=== PATIENT | female | born 1995 | race Caucasian/White ===

== ENCOUNTER 2018-07-29 20:29 | Emergency (ER) | payer SELFPAY ==
[2018-07-29 21:14] LABS: Absolute Lymphocytes (CBC) 1.3 K/uL (0.7-4.9); Absolute Monocytes 0.6 K/uL (0.1-1.3); Absolute Neutrophil 4.9 K/uL (1.8-8.0); Basophils % 0.4 % (0-1.3); Eosinophils % 0.9 % (0-4.4); Hematocrit 37.4 % (36.0-45.0); Lymphocytes % 18.6 % (15.3-44.8); MCH 29.1 pg (27.0-35.0); MCV 86.3 fL (80-100); MPV 8.2 fL (7.6-11.3); RBC Red Blood Cell Count 4.33 M/uL (3.86-4.86)
[2018-07-29] MEDS ORDERED: NA CHLORIDE 0.9% 1,000 ML ONE (21:15)
[2018-07-29 21:29] LABS: ALT/SGPT 21 U/L (12-78); AST/SGOT 16 U/L (15-37); Albumin 3.7 g/dL (3.4-5.0); Alkaline Phosphatase 62 U/L (45-117); BUN Blood Urea Nitrogen 12 mg/dL (7-18); Bicarbonate 27 mmol/L (21-32); Bilirubin Direct < 0.1 mg/dL (0-0.2); Bilirubin Total 0.3 mg/dL (0.2-1.0); Glucose Level 114 mg/dL (74-106); Potassium 4.1 mmol/L (3.5-5.1); Protein, Total 7.2 g/dL (6.4-8.2); Sodium Level 141 mmol/L (136-145)
[2018-07-29] MEDS ORDERED: NA CHLORIDE 0.9% 500 ML ONE (22:43)
[2018-07-29 22:51] LABS: Urine Blood 2+ (NEG); Urine Glucose NEGATIVE (NEG); Urine Protein NEGATIVE (NEG)
[2018-07-29 23:06] LABS: Urine Culture Reflex Order REFLEXED; Urine RBC <5 /HPF (NONE SEEN)
[2018-07-29 23:07] LABS: Urine Bacteria 20-50 /HPF (<20)
[2018-07-29 23:08] LABS: Barbiturates NEGATIVE (NEGATIVE); Benzodiazepines NEGATIVE (NEGATIVE); Cocaine NEGATIVE (NEGATIVE); METHAMPHETAM NEGATIVE (NEGATIVE); Methadone NEGATIVE (NEGATIVE); Opiates NEGATIVE (NEGATIVE); Phencyclidine NEGATIVE (NEGATIVE); THC Cannibis POSITIVE (NEGATIVE)
--- NOTE | 2018-07-29 23:39 | EDPHYS ---
Physician Documentation [facility] Name: Francheska Fernandez Age: 22 yrs Sex: Female : 1995 Arrival Date: 07/29/2018 Time: 20:30 Bed 5 Private MD: ED Physician Trav Portillo HPI: 07/29 21:26 This 22 yrs old Female presents to ER via EMS with complaints of lightheaded, snw syncope. 21:26 The patient has experienced syncope, collapsed. Onset: The symptoms/episode snw began/occurred suddenly, today. Duration: The patient has had multiple episodes. Context: the episode(s) was witnessed, by family, occurred at a store, occurred while the patient was walking. Associated signs and symptoms: Pertinent positives: lightheadedness. Current symptoms: lightheaded. The patient has experienced a previous episode. 2 months ago - IUD placed. 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 - Social history:: Smoking status: Patient/guardian denies using tobacco, Patient/guardian denies using alcohol, street drugs. - Ebola Screening: : Patient negative for fever greater than or equal to 101.5 degrees Fahrenheit, and additional compatible Ebola Virus Disease symptoms Patient denies exposure to infectious person Patient denies travel to an Ebola-affected area in the 21 days before illness onset. ROS: 21:28 Constitutional: Negative for fever, chills, and weight loss, Eyes: Negative for injury, snw pain, redness, and discharge, ENT: Negative for injury, pain, and discharge, Neck: Negative for injury, pain, and swelling, Cardiovascular: Negative for chest pain, palpitations, and edema, Respiratory: Negative for shortness of breath, cough, wheezing, and pleuritic chest pain, Abdomen/GI: Negative for abdominal pain, nausea, vomiting, diarrhea, and constipation, Back: Negative for injury and pain, : Negative for injury, bleeding, discharge, and swelling, MS/Extremity: Negative for injury and deformity, Skin: Negative for injury, rash, and discoloration. 21:28 Neuro: Positive for syncope. Exam: 21:29 Constitutional: This is a well developed, well nourished patient who is awake, alert, snw and in no acute distress. Head/Face: Normocephalic, atraumatic. ENT: Nares patent. No nasal discharge, no septal abnormalities noted. Tympanic membranes are normal and external auditory canals are clear. Oropharynx with no redness, swelling, or masses, exudates, or evidence of obstruction, uvula midline. Mucous membranes moist. Neck: Trachea midline, no thyromegaly or masses palpated, and no cervical lymphadenopathy. Supple, full range of motion without nuchal rigidity, or vertebral point tenderness. No Meningismus. Chest/axilla: Normal chest wall appearance and motion. Nontender with no deformity. No lesions are appreciated. Cardiovascular: Tachy rate and rhythm with a normal S1 and S2. No gallops, murmurs, or rubs. Normal PMI, no JVD. No pulse deficits. Respiratory: Lungs have equal breath sounds bilaterally, clear to auscultation and percussion. No rales, rhonchi or wheezes noted. No increased work of breathing, no retractions or nasal flaring. Abdomen/GI: Soft, non-tender, with normal bowel sounds. No distension or tympany. No guarding or rebound. No evidence of tenderness throughout. Back: No spinal tenderness. No costovertebral tenderness. Full range of motion. 21:29 Eyes: Pupils: no acute changes, Conjunctiva: injected. 21:29 Skin: Appearance: Color: pale, Temperature: normal temperature. Vital Signs: 20:25 BP 94 / 51; Pulse 106; Resp 18; Temp 98.4(O); Pulse Ox 98% on R/A; Weight 54.43 kg (R); fc Height 5 ft. 0 in. (152.40 cm) (R); Pain 0/10; 21:48 BP 105 / 57; Pulse 105; Resp 17 S; Pulse Ox 97% on R/A; jd3 22:34 BP 102 / 66; Pulse 108; Resp 15 S; Pulse Ox 100% on R/A; jd3 23:18 BP 101 / 67; Pulse 93; Resp 15 S; Pulse Ox 97% on R/A; jd3 20:25 Body Mass Index 23.44 (54.43 kg, 152.40 cm) fc MDM: 20:45 Patient medically screened. snw 07/30 02:54 Data reviewed: vital signs, nurses notes, lab test result(s), radiologic studies. Data snw interpreted: Pulse oximetry: on room air is 97 %. Interpretation: normal. Counseling: I had a detailed discussion with the patient and/or guardian regarding: the historical points, exam findings, and any diagnostic results supporting the discharge/admit diagnosis, lab results, the need for outpatient follow up, to return to the emergency department if symptoms worsen or persist or if there are any questions or concerns that arise at home. Special discussion: Based on the history and exam findings, there is no indication for further emergent testing or inpatient evaluation. I discussed with the patient/guardian the need to see the primary care provider for further evaluation of the symptoms. 07/29 20:41 Order name: TS; Complete Time: 22:06 snw 07/29 20:41 Order name: Basic Metabolic Panel; Complete Time: 21:31 snw 07/29 20:41 Order name: CBC with Diff; Complete Time: 21:22 snw 07/29 20:41 Order name: Hepatic Function; Complete Time: 21:31 snw 07/29 21:29 Order name: Flu; Complete Time: 22:18 snw 07/29 21:31 Order name: Urine Microscopic Only; Complete Time: 23:10 snw 07/29 21:31 Order name: Urine Drug Screen; Complete Time: 23:37 snw 07/29 21:33 Order name: Add On-Lab [facility] 07/29 21:39 Order name: Thyroid Stimulating Hormone; Complete Time: 22:06 [facility] 07/29 22:43 Order name: Urine Dipstick--Ancillary (enter results); Complete Time: 22:52 mt 07/29 22:43 Order name: Urine --Ancillary (enter results); Complete Time: 22:52 ar 07/29 23:08 Order name: Urine Culture [facility] 07/29 20:41 Order name: Labs collected and sent; Complete Time: 21:07 snw 07/29 21:28 Order name: EKG; Complete Time: 21:28 snw 07/29 21:28 Order name: EKG - Nurse/Tech; Complete Time: 22:02 w 07/29 21:31 Order name: Urine Test (obtain specimen); Complete Time: 22:39 snw 07/29 21:31 Order name: Urine Dipstick-Ancillary (obtain specimen); Complete Time: 22:39 snw Administered Medications: 07/29 21:11 Drug: NS 0.9% 1000 ml Route: IV; Rate: 1 bolus; Site: right antecubital; jd3 22:39 Follow up: Response: No adverse reaction; IV Status: Completed infusion; IV Intake: jd3 1000ml 22:38 Drug: NS 0.9% 500 ml Volume: 500 ml; Route: IV; Rate: 1 bolus; Site: right antecubital; jd3 23:59 Follow up: Response: No adverse reaction; IV Status: Completed infusion; IV Intake: jd3 500ml Disposition: 07/30 17:05 Co-signature as Attending Physician, Trav Portillo MD I agree with the assessment and wa plan of care. Disposition: 07/29/18 23:39 Discharged to Home. Impression: Syncope and collapse, Marijuana use. - Condition is Stable. - Discharge Instructions: Dehydration, Adult, Syncope, Rehydration, Adult, What You Need To Know About Illegal Drug Use and Dependence, Youth. - Work release form, Medication Reconciliation Form, Thank You Letter, Antibiotic Education, Prescription Opioid Use form. - Follow up: Private Physician; When: 1 - 2 days; Reason: Recheck today's complaints, Continuance of care, Re-evaluation by your physician. Follow up: Emergency Department; When: As needed; Reason: Worsening of condition. Signatures: Dispatcher [employer] EDMA Valerie Sosa FNP-C [employer] OPERATOR-Elizabet Chavis, RN Trav King MD MD wa Davies, Jonathon, RN RN jd3 Corrections: (The following items were deleted from the chart) 07/29 23:59 23:39 07/29/2018 23:39 Discharged to Home. Impression: Syncope and collapse; Marijuana jd3 use. Condition is Stable. Forms are Medication Reconciliation Form, Thank You Letter, Antibiotic Education, Prescription Opioid Use. Follow up: Private Physician; When: 1 - 2 days; Reason: Recheck today's complaints, Continuance of care, Re-evaluation by your physician. Follow up: Emergency Department; When: As needed; Reason: Worsening of condition. snw
--- NOTE | 2018-07-29 23:39 | ER ---
Nurse's Notes [facility] Name: Francheska Fernandez Age: 22 yrs Sex: Female : 1995 Arrival Date: 07/29/2018 Time: 20:30 Bed 5 Private MD: Diagnosis: Syncope and collapse;Marijuana use Presentation: 07/29 20:25 Presenting complaint: Patient states: that she had an IUD placed 2 weeks ago and has fc been spotting ever since. Was at [facility] today and had 3 episodes of syncope. Never completely passed out and or fell to ground. Has had this in the past but never went to for it. Transition of care: patient was not received from another setting of care. Onset of symptoms was July 29, 2018. Risk Assessment: Do you want to hurt yourself or someone else? Patient reports no desire to harm self or others. Initial Sepsis Screen: Does the patient meet any 2 criteria? HR > 90 bpm. Yes Does the patient have a suspected source of infection? No. Patient's initial sepsis screen is negative. Care prior to arrival: Medication(s) given: Normal saline infusion, 300 ml IV initiated. 22 GA, in the right antecubital area, Glucose check: 118. 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 - Social history:: Smoking status: Patient/guardian denies using tobacco, Patient/guardian denies using alcohol, street drugs. - Ebola Screening: : Patient negative for fever greater than or equal to 101.5 degrees Fahrenheit, and additional compatible Ebola Virus Disease symptoms Patient denies exposure to infectious person Patient denies travel to an Ebola-affected area in the 21 days before illness onset. Screenin:35 Abuse screen: Denies threats or abuse. Nutritional screening: No deficits noted. fc Tuberculosis screening: No symptoms or risk factors identified. Fall Risk None identified. Assessment: 20:33 General: Appears uncomfortable, Behavior is cooperative, anxious. Pain: Denies pain. jd3 Neuro: Level of Consciousness is awake, alert, obeys commands, Oriented to person, place, time, situation, Appropriate for age Moves all extremities. Speech is normal, Pupils are PERRLA, Intact Reports a syncopal episode weakness. Cardiovascular: Denies chest pain, Heart tones S1 S2 present Capillary refill < 3 seconds Patient's skin is warm and dry. Respiratory: Airway is patent Respiratory effort is even, unlabored, Respiratory pattern is regular, symmetrical, Breath sounds are clear bilaterally. Denies shortness of breath. GI: Abdomen is round non-distended, Bowel sounds present X 4 quads. Abd is soft and non tender X 4 quads. Patient currently denies nausea, vomiting. : No signs and/or symptoms were reported regarding the genitourinary system. EENT: No signs and/or symptoms were reported regarding the EENT system. Derm: Skin is intact, Skin is dry, Skin is normal, Skin temperature is warm. Musculoskeletal: Circulation, motion, and sensation intact. Range of motion: intact in all extremities. 21:48 Reassessment: Patient appears in no apparent distress at this time. Patient and/or jd3 family updated on plan of care and expected duration. Pain level reassessed. Patient is alert, oriented x 3, equal unlabored respirations, skin warm/dry/pink. Patient states feeling better. 22:34 Reassessment: Patient appears in no apparent distress at this time. No changes from jd3 previously documented assessment. Patient and/or family updated on plan of care and expected duration. Pain level reassessed. Patient is alert, oriented x 3, equal unlabored respirations, skin warm/dry/pink. 23:19 Reassessment: Patient appears in no apparent distress at this time. No changes from jd3 previously documented assessment. Patient and/or family updated on plan of care and expected duration. Pain level reassessed. Patient is alert, oriented x 3, equal unlabored respirations, skin warm/dry/pink. 23:58 Reassessment: Patient appears in no apparent distress at this time. No changes from jd3 previously documented assessment. Patient and/or family updated on plan of care and expected duration. Pain level reassessed. Patient is alert, oriented x 3, equal unlabored respirations, skin warm/dry/pink. pt reported understanding of discharge instructions. Vital Signs: 20:25 BP 94 / 51; Pulse 106; Resp 18; Temp 98.4(O); Pulse Ox 98% on R/A; Weight 54.43 kg (R); fc Height 5 ft. 0 in. (152.40 cm) (R); Pain 0/10; 21:48 BP 105 / 57; Pulse 105; Resp 17 S; Pulse Ox 97% on R/A; jd3 22:34 BP 102 / 66; Pulse 108; Resp 15 S; Pulse Ox 100% on R/A; jd3 23:18 BP 101 / 67; Pulse 93; Resp 15 S; Pulse Ox 97% on R/A; jd3 20:25 Body Mass Index 23.44 (54.43 kg, 152.40 cm) fc ED Course: 20:25 Arm band placed on Patient placed in an exam room, on a stretcher. fc 20:30 Patient arrived in ED. al2 20:34 Triage completed. fc 20:35 Patient has correct armband on for positive identification. Bed in low position. Call fc light in reach. Side rails up X2. Pulse ox on. NIBP on. 20:35 No provider procedures requiring assistance completed. Maintain EMS IV. Dressing fc intact. Good blood return noted. Site clean \T\ dry. Gauge \T\ site: 22 gauge to right a/c. 20:38 Mike Greco RN is Primary Nurse. jd3 20:40 Valerie Sosa FNP-C is PHCP. snw 20:40 Trav Portillo MD is Attending Physician. snw 23:58 IV discontinued, intact, bleeding controlled, No redness/swelling at site. Pressure jd3 dressing applied. Administered Medications: 21:11 Drug: NS 0.9% 1000 ml Route: IV; Rate: 1 bolus; Site: right antecubital; jd3 22:39 Follow up: Response: No adverse reaction; IV Status: Completed infusion; IV Intake: jd3 1000ml 22:38 Drug: NS 0.9% 500 ml Volume: 500 ml; Route: IV; Rate: 1 bolus; Site: right antecubital; jd3 23:59 Follow up: Response: No adverse reaction; IV Status: Completed infusion; IV Intake: jd3 500ml Intake: 22:39 IV: 1000ml; Total: 1000ml. jd3 23:59 IV: 500ml; Total: 1500ml. jd3 Outcome: 23:39 Discharge ordered by . mj 23:57 Discharged to home via wheelchair, with friend. jd3 23:57 Condition: stable 23:57 Discharge instructions given to patient, friend, Instructed on discharge instructions, follow up and referral plans. Demonstrated understanding of instructions, follow-up care. 23:59 Patient left the ED. jd3 Signatures: Valerie Sosa, CLARK DRIVER-C CLARK DRIVER-Csnw Elizabet Cifuentes, RN RN Mike Shi RN RN jmickey Johnson, Kylie smith
--- NOTE | 2018-07-30 07:09 | EKG ---
Test Date: 2018-07-29 Test Time: 21:56:22 Slackman: NEENA MEASUREMENT RESULTS: Intervals: Rate: 110 NM: 128 QRSD: 88 QT: 316 QTc: 427 [place]: P: 42 NM: 128 QRS: 70 T: -5 INTERPRETIVE STATEMENTS: Sinus tachycardia Nonspecific T wave abnormality Abnormal ECG No previous ECG available for comparison Electronically Signed On 07-30-18 07:09:05 COLD ROLLING MACHINE SETTER by Raul Puckett
== END 2018-07-29 23:59 | disposition home or self-care (01) ==
LOC: ER 20:29
DX: F12.90 Cannabis use, unspecified, uncomplicated (principal)
CPT/HCPCS: 36415; 80048; 80076; 80307; 81003; 81015; 81025; 84443; 85025; 86850; 86900; 86901; 87086; 87088; 87804; 93005; 96360; 96361; 99284; J7030

== ENCOUNTER 2018-11-18 20:27 | Emergency (ER) | payer SELFPAY ==
--- NOTE | 2018-11-18 21:41 | EDPHYS ---
Physician Documentation [facility] Name: Francheska Fernandez Age: 23 yrs Sex: Female : 1995 Arrival Date: 11/18/2018 Time: 20:29 Bed 17 Private MD: ED Physician Kain Nunes HPI: 11/18 21:49 This 23 yrs old Female presents to ER via Ambulatory with complaints of snw Cough, Sore Throat, Congestion. 21:49 The patient or guardian reports cough, described as moderate. Onset: The snw symptoms/episode began/occurred acutely, 2 day(s) ago, and became persistent. Severity of symptoms: At their worst the symptoms were severe. Associated signs and symptoms: Pertinent positives: rhinorrhea, sore throat, Pertinent negatives: fever. The patient has not experienced similar symptoms in the past. It is unknown whether or not the patient has recently seen a physician. 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 - Social history:: Smoking status: Patient/guardian denies using tobacco, never smoked, Patient uses alcohol, but reports only rare drinking. Patient/guardian denies using street drugs. - Ebola Screening: : Patient negative for fever greater than or equal to 101.5 degrees Fahrenheit, and additional compatible Ebola Virus Disease symptoms Patient denies exposure to infectious person Patient denies travel to an Ebola-affected area in the 21 days before illness onset. ROS: 21:47 Constitutional: Negative for fever, chills, and weight loss, Eyes: Negative for injury, snw pain, redness, and discharge. 21:47 Neck: Negative for injury, pain, and swelling, Cardiovascular: Negative for chest pain, palpitations, and edema. 21:47 Abdomen/GI: Negative for abdominal pain, nausea, vomiting, diarrhea, and constipation, Back: Negative for injury and pain, : Negative for injury, bleeding, discharge, and swelling, MS/Extremity: Negative for injury and deformity, Skin: Negative for injury, rash, and discoloration, Neuro: Negative for headache, weakness, numbness, tingling, and seizure. 21:47 ENT: Positive for nasal discharge, sore throat. 21:47 Respiratory: Positive for cough, with no reported sputum. Exam: 21:46 Constitutional: This is a well developed, well nourished patient who is awake, alert, snw and in no acute distress. Head/Face: Normocephalic, atraumatic. Eyes: Pupils equal round and reactive to light, extra-ocular motions intact. Lids and lashes normal. Conjunctiva and sclera are non-icteric and not injected. Cornea within normal limits. Periorbital areas with no swelling, redness, or edema. ENT: Nares patent. No nasal discharge, no septal abnormalities noted. Tympanic membranes are normal and external auditory canals are clear. Oropharynx with redness, no swelling, or masses, exudates, or evidence of obstruction, uvula midline. Mucous membranes moist. Neck: Trachea midline, no thyromegaly or masses palpated, and no cervical lymphadenopathy. Supple, full range of motion without nuchal rigidity, or vertebral point tenderness. No Meningismus. Chest/axilla: Normal chest wall appearance and motion. Nontender with no deformity. No lesions are appreciated. Cardiovascular: Regular rate and rhythm with a normal S1 and S2. No gallops, murmurs, or rubs. Normal PMI, no JVD. No pulse deficits. Respiratory: Lungs have equal breath sounds bilaterally, clear to auscultation and percussion. No rales, rhonchi or wheezes noted. No increased work of breathing, no retractions or nasal flaring. Abdomen/GI: Soft, non-tender, with normal bowel sounds. No distension or tympany. No guarding or rebound. No evidence of tenderness throughout. Back: No spinal tenderness. No costovertebral tenderness. Full range of motion. Skin: Warm, dry with normal turgor. Normal color with no rashes, no lesions, and no evidence of cellulitis. MS/ Extremity: Pulses equal, no cyanosis. Neurovascular intact. Full, normal range of motion. Neuro: Awake and alert, GCS 15, oriented to person, place, time, and situation. Cranial nerves II-XII grossly intact. Motor strength 5/5 in all extremities. Sensory grossly intact. Cerebellar exam normal. Normal gait. Psych: Awake, alert, with orientation to person, place and time. Behavior, mood, and affect are within normal limits. Vital Signs: 20:36 BP 109 / 69; Pulse 95; Resp 17; Temp 99.7; Pulse Ox 100% on R/A; Weight 56.7 kg; Height tl1 5 ft. 0 in. (152.40 cm); Pain 6/10; 22:00 BP 104 / 64; Pulse 91; Resp 18; Pulse Ox 99% on R/A; tl2 20:36 Body Mass Index 24.41 (56.70 kg, 152.40 cm) tl1 MDM: 21:02 Patient medically screened. snw 21:47 Data reviewed: vital signs, nurses notes. Data interpreted: Pulse oximetry: on room air snw is 100 %. Interpretation: normal. Counseling: I had a detailed discussion with the patient and/or guardian regarding: the historical points, exam findings, and any diagnostic results supporting the discharge/admit diagnosis, lab results, the need for outpatient follow up, to return to the emergency department if symptoms worsen or persist or if there are any questions or concerns that arise at home. Special discussion: Based on the history and exam findings, there is no indication for further emergent testing or inpatient evaluation. I discussed with the patient/guardian the need to see the primary care provider for further evaluation of the symptoms. 11/18 20:42 Order name: Flu; Complete Time: 21:27 tl2 11/18 20:42 Order name: Strep; Complete Time: 21:27 tl2 11/18 21:17 Order name: Throat Culture EDMS Administered Medications: 22:01 Drug: predniSONE 20 mg Route: PO; tl2 22:37 Follow up: Response: No adverse reaction tl2 22:01 Drug: ZyrTEC - Cetirizine 10 mg Route: PO; tl2 22:37 Follow up: Response: No adverse reaction tl2 Disposition: 11/19 05:58 Co-signature as Attending Physician, Kain Nunes MD I agree with the assessment and 4 plan of care. Disposition: 11/18/18 21:41 Discharged to Home. Impression: Cough, Allergic rhinitis, unspecified. - Condition is Stable. - Discharge Instructions: Allergic Rhinitis, Cool Mist Vaporizer, Cough, Adult. - Prescriptions for Zyrtec 10 mg Oral Tablet - take 1 tablet by ORAL route once daily As needed; 20 tablet. Tessalon Perles 100 mg Oral Capsule - take 1 capsule by ORAL route every 8 hours As needed; 15 capsule. Prednisone 20 mg Oral Tablet - take 2 tablet by ORAL route once daily for 5 days; 10 tablet. - Medication Reconciliation Form, Thank You Letter, Antibiotic Education, Prescription Opioid Use, Work release form, Family Work Release form. - Follow up: Private Physician; When: 2 - 3 days; Reason: Recheck today's complaints, Continuance of care, Re-evaluation by your physician. Follow up: Emergency Department; When: As needed; Reason: Worsening of condition. Signatures: Dispatcher [employer] EDMS Valerie Sosa, TAL-C MESS ATTENDANT CREW-Csnw Kristen Parks, RN RN tl1 Tiara Rodriguez RN RN tl2 Kain Nunes MD MD tw4 Corrections: (The following items were deleted from the chart) 11/18 21:49 21:47 Constitutional: Negative for fever, chills, and weight loss, ENT: Negative for snw injury, pain, and discharge, snw 22:37 21:41 11/18/2018 21:41 Discharged to Home. Impression: Cough; Allergic rhinitis, tl2 unspecified. Condition is Stable. Forms are Medication Reconciliation Form, Thank You Letter, Antibiotic Education, Prescription Opioid Use. Follow up: Private Physician; When: 2 - 3 days; Reason: Recheck today's complaints, Continuance of care, Re-evaluation by your physician. Follow up: Emergency Department; When: As needed; Reason: Worsening of condition. snw
--- NOTE | 2018-11-18 21:41 | ER ---
Nurse's Notes [facility] Name: Francheska Fernandez Age: 23 yrs Sex: Female : 1995 Arrival Date: 11/18/2018 Time: 20:29 Bed 17 Private MD: Diagnosis: Cough;Allergic rhinitis, unspecified Presentation: 11/18 20:35 Presenting complaint: Patient states: Sore throat, cough and congestion for approx 3 tl1 days. Transition of care: patient was not received from another setting of care. Onset of symptoms was November 14, 2018. Risk Assessment: Do you want to hurt yourself or someone else? Patient reports no desire to harm self or others. Initial Sepsis Screen: Does the patient meet any 2 criteria? No. Patient's initial sepsis screen is negative. Does the patient have a suspected source of infection? No. Patient's initial sepsis screen is negative. Care prior to arrival: Medication(s) given: Tylenol. 20:35 Method Of Arrival: Ambulatory tl1 20:35 Acuity: CORNELIUS 4 tl1 PATIENT OFFICE REP: 20:36 LMP N/A - control method tl1 Historical: - Allergies: 20:37 No Known Allergies; tl1 - Home Meds: 20:37 None [Active]; tl1 - PMHx: 20:37 Anemia; tl1 - PSHx: 20:37 None; tl1 - Immunization history:: Adult Immunizations up to date. - Social history:: Smoking status: Patient/guardian denies using tobacco, never smoked, Patient uses alcohol, but reports only rare drinking. Patient/guardian denies using street drugs. - Ebola Screening: : Patient negative for fever greater than or equal to 101.5 degrees Fahrenheit, and additional compatible Ebola Virus Disease symptoms Patient denies exposure to infectious person Patient denies travel to an Ebola-affected area in the 21 days before illness onset. Screenin:50 Abuse screen: Denies threats or abuse. Nutritional screening: No deficits noted. tl2 Tuberculosis screening: No symptoms or risk factors identified. Fall Risk None identified. Assessment: 20:51 General: Appears in no apparent distress. uncomfortable, Behavior is calm, cooperative, tl2 appropriate for age. Pain: Complains of pain in sore throat. Neuro: Level of Consciousness is awake, alert, obeys commands, Oriented to person, place, time, situation. Cardiovascular: Denies chest pain. Respiratory: Reports cough that is Airway is patent Respiratory effort is even, unlabored, Respiratory pattern is regular, symmetrical, Breath sounds are clear bilaterally. Respiratory: Reports congestion. GI: No signs and/or symptoms were reported involving the gastrointestinal system. : No signs and/or symptoms were reported regarding the genitourinary system. EENT: Throat is reddened. Derm: No signs and/or symptoms reported regarding the dermatologic system. 22:00 Reassessment: Patient appears in no apparent distress at this time. Patient and/or tl2 family updated on plan of care and expected duration. Pain level reassessed. Patient is alert, oriented x 3, equal unlabored respirations, skin warm/dry/pink. pt verbalized understanding of discharge instructions, need for follow up and tylenol/motrin usage. Vital Signs: 20:36 BP 109 / 69; Pulse 95; Resp 17; Temp 99.7; Pulse Ox 100% on R/A; Weight 56.7 kg; Height tl1 5 ft. 0 in. (152.40 cm); Pain 6/10; 22:00 BP 104 / 64; Pulse 91; Resp 18; Pulse Ox 99% on R/A; tl2 20:36 Body Mass Index 24.41 (56.70 kg, 152.40 cm) tl1 ED Course: 20:29 Patient arrived in ED. es 20:36 Triage completed. tl1 20:37 Valerie Sosa FNP-C is [facility]. snw 20:37 Kain Nunes MD is Attending Physician. snw 20:38 Arm band placed on. tl1 20:39 Tiara Rodriguez RN is Primary Nurse. tl2 20:50 Flu and/or RSV swab sent to lab. Strep swab sent to lab. tl2 20:54 Patient has correct armband on for positive identification. Bed in low position. Call tl2 light in reach. Side rails up X 1. Adult w/ patient. 22:00 No provider procedures requiring assistance completed. Patient did not have IV access tl2 during this emergency room visit. Administered Medications: 22:01 Drug: predniSONE 20 mg Route: PO; tl2 22:37 Follow up: Response: No adverse reaction tl2 22:01 Drug: ZyrTEC - Cetirizine 10 mg Route: PO; tl2 22:37 Follow up: Response: No adverse reaction tl2 Outcome: 21:41 Discharge ordered by MD. barker 22:00 Discharged to home ambulatory, with family. tl2 22:00 Condition: stable 22:00 Discharge instructions given to patient, Instructed on discharge instructions, follow up and referral plans. medication usage, Demonstrated understanding of instructions, follow-up care, medications. 22:37 Patient left the ED. tl2 Signatures: Valerie Sosa, SUPERVISOR DIALS-C SUPERVISOR [employer] Yvonne Lopez Tonya, RN RN tl1 Tiara Rodriguez RN RN tl2
[2018-11-18] MEDS ORDERED: predniSONE 20 MG TAB ONE (21:57)
[2018-11-18] MEDS ORDERED: CETIRIZINE HCL 5 MG TABLET ONE (21:57)
== END 2018-11-18 22:37 | disposition home or self-care (01) ==
LOC: ER 20:27
DX: J30.9 Allergic rhinitis, unspecified (principal)
CPT/HCPCS: 87070; 87081; 87804; 99283; J7512

== ENCOUNTER 2021-09-18 09:50 | Emergency (ER) | payer SELFPAY ==
[2021-09-18] MEDS ORDERED: ACETAMINOPHEN 500 MG TAB ONE (10:37)
[2021-09-18] MEDS ORDERED: dexAMETHasone 10 MG/ML VIAL ONE (10:38)
[2021-09-18 13:22] LABS: SARS-COV-2 RT PCR POSITIVE (NEGATIVE)
--- NOTE | 2021-09-18 13:34 | ER ---
Nurse's Notes [facility] Name: Francheska Fernandez Age: 25 yrs Sex: Female : 1995 Arrival Date: 09/18/2021 Time: 09:55 Bed Waiting Private MD: Diagnosis: Coronavirus infection, unspecified Presentation: 09/18 10:12 Chief complaint: Patient states: Telehealth 08/29 treated for strep, did NOT finish ll1 antibiotics and thinks she still has the strep. Was never actually tested, just got antibiotics (Augmentin) from telehealth provider and now telehealth provider told her to come to ER because they wont write for second antibiotics. Coronavirus screen: Vaccine status: Patient reports being unvaccinated. Client denies travel out of the [place] in the last 14 days. Ebola Screen: Patient negative for fever greater than or equal to 101.5 degrees Fahrenheit, and additional compatible Ebola Virus Disease symptoms Patient denies exposure to infectious person. Patient denies travel to an Ebola-affected area in the 21 days before illness onset. Initial Sepsis Screen: Does the patient meet any 2 criteria? HR > 90 bpm. Does the patient have a suspected source of infection? Yes: Other: strep. Risk Assessment: Do you want to hurt yourself or someone else? Patient reports no desire to harm self or others. Onset of symptoms. 10:12 Method Of Arrival: Ambulatory ll1 10:12 Acuity: CORNELIUS 4 ll1 Triage Assessment: 10:17 General: Appears in no apparent distress. well groomed, well developed, well nourished, ll1 Behavior is calm, cooperative, appropriate for age. Pain: Denies pain. EENT: Reports pain in throat. HEALTH ACTUARY: 14:40 LMP N/A - control method ll1 Historical: - PMHx: 10:17 Anemia; ll1 - Immunization history:: Adult Immunizations up to date. - Social history:: Smoking status: Patient denies any tobacco usage or history of. Screenin:18 Abuse screen: Denies threats or abuse. Denies injuries from another. Nutritional ll1 screening: No deficits noted. Tuberculosis screening: No symptoms or risk factors identified. Fall Risk None identified. Assessment: 10:18 Respiratory: Airway is patent Respiratory effort is even, unlabored, Breath sounds are ll1 clear. 10:18 EENT: Throat is pink is reddened. ll1 11:15 Reassessment: No changes from previously documented assessment. Patient and/or family ll1 updated on plan of care and expected duration. Pain level reassessed. Patient is alert, oriented x 3, equal unlabored respirations, skin warm/dry/pink. 12:15 Reassessment: No changes from previously documented assessment. Patient and/or family ll1 updated on plan of care and expected duration. Pain level reassessed. Patient is alert, oriented x 3, equal unlabored respirations, skin warm/dry/pink. 13:15 Reassessment: No changes from previously documented assessment. Patient and/or family ll1 updated on plan of care and expected duration. Pain level reassessed. Patient is alert, oriented x 3, equal unlabored respirations, skin warm/dry/pink. Vital Signs: 10:12 BP 112 / 68; Pulse 111; Resp 18; Temp 100.4; Pulse Ox 98% ; Weight 58.97 kg; Height 5 ll1 ft. 0 in. (152.40 cm); 10:12 Body Mass Index 25.39 (58.97 kg, 152.40 cm) ll1 ED Course: 09:55 Patient arrived in ED. mr 10:17 Triage completed. ll1 10:20 Arm band placed on Patient placed in an internal wait recliner. ll1 10:29 Ho Daniels NP is PHCP. pm1 10:29 Hardy Barney MD is Attending Physician. pm1 10:32 Strep Sent. ll1 10:32 COVID-19/FLU A+B (Document "Date of Onset" if Symptomatic) Sent. ll1 13:50 Patient has correct armband on for positive identification. Cardiac monitoring not ll1 applicable on this patient. 13:53 No provider procedures requiring assistance completed. Patient did not have IV access ll1 during this emergency room visit. Administered Medications: 10:36 Drug: Tylenol 1000 mg Route: PO; ll1 14:41 Follow up: Response: No adverse reaction ll1 11:47 Drug: Decadron (dexamethasone) 10 mg Route: IM; Site: right deltoid; 5 13:50 Follow up: Response: No adverse reaction ll1 Outcome: 13:33 Discharge ordered by . pm1 13:53 Patient left the ED. ll1 13:53 Discharged to home ambulatory. 1 13:53 Condition: stable 13:53 Discharge instructions given to patient, Instructed on discharge instructions, follow up and referral plans. Signatures: Flora Woodward Patrick, NP PHOTOGRAPHIC DOUBLE pm1 Sarai Payne RN RN ll1 Julieth Marc RN RN jh5
--- NOTE | 2021-09-18 13:34 | EDPHYS ---
Physician Documentation [facility] Name: Francheska Fernandez Age: 25 yrs Sex: Female : 1995 Arrival Date: 09/18/2021 Time: 09:55 Bed Waiting Private MD: ED Physician Hardy Barney HPI: 09/18 12:00 This 25 yrs old Female presents to ER via Ambulatory with complaints of Sore Throat. pm1 12:00 The patient presents with sore throat. The patient describes throat pain as constant, pm1 raw, scratchy. Onset: The symptoms/episode began/occurred 08/29 then improved after 5-6 days of antibiotic therapy. Patient stopped taking amoxicillin and sore throat symptoms returned for the past few days. Patient is concerned that she has strep throat. Patient was diagnosed with strep throat and prescribed amoxicillin from a telehealth visit on 08/29. No swabs were performed. Severity of symptoms: in the emergency department the symptoms are unchanged. Modifying factors: The symptoms are alleviated by nothing, the symptoms are aggravated by swallowing, Patient's oral intake status: good. Associated signs and symptoms: Pertinent positives: fever, Pertinent negatives chest pain, cough, diarrhea, earache, shortness of breath, vomiting. The patient has experienced a previous episode, with onset 08/29/2021. The patient has not recently seen a physician. [employer]: 14:40 LMP N/A - control method ll1 Historical: - PMHx: 10:17 Anemia; ll1 - Immunization history:: Adult Immunizations up to date. - Social history:: Smoking status: Patient denies any tobacco usage or history of. ROS: 12:00 Cardiovascular: Negative for chest pain, palpitations, and edema, Respiratory: Negative pm1 for shortness of breath, cough, wheezing, and pleuritic chest pain. 12:00 Abdomen/GI: Negative for abdominal pain, nausea, vomiting, diarrhea, and constipation, MS/Extremity: Negative for injury and deformity, Skin: Negative for injury, rash, and discoloration, Neuro: Negative for headache, weakness, numbness, tingling, and seizure. 12:00 Constitutional: Positive for body aches, fever, Negative for poor PO intake. 12:00 ENT: Positive for sore throat, Negative for drainage from ear(s), ear pain, difficulty swallowing, difficulty handling secretions, hoarseness. 12:00 All other systems are negative. Exam: 12:00 Constitutional: This is a well developed, well nourished patient who is awake, alert, pm1 and in no acute distress. Head/Face: Normocephalic, atraumatic. 12:00 Skin: Warm, dry with normal turgor. Normal color with no rashes, no lesions, and no evidence of cellulitis. MS/ Extremity: Pulses equal, no cyanosis. Neurovascular intact. Full, normal range of motion. 12:00 ENT: Exam is negative for acute changes, External ear(s): no acute changes, Ear canal(s): no acute changes, TM's: no acute changes, Mouth: Lips: normal, moist, Oral mucosa: normal, pink and intact, moist. 12:00 Cardiovascular: Exam negative for acute changes, Rate: normal, Rhythm: regular, Pulses: no pulse deficits are appreciated, Heart sounds: normal, normal S1and S2. 12:00 Respiratory: Exam negative for acute changes, respiratory distress, shortness of breath, Breath sounds: are clear throughout. 12:00 Neuro: Exam negative for acute changes, Orientation: is normal, Mentation: is normal, Motor: is normal, moves all fours. Vital Signs: 10:12 BP 112 / 68; Pulse 111; Resp 18; Temp 100.4; Pulse Ox 98% ; Weight 58.97 kg; Height 5 ll1 ft. 0 in. (152.40 cm); 10:12 Body Mass Index 25.39 (58.97 kg, 152.40 cm) ll1 MDM: 12:00 Patient medically screened. pm1 13:29 Data reviewed: vital signs. Data interpreted: Pulse oximetry: on room air is 98 %. pm1 Interpretation: normal. Counseling: I had a detailed discussion with the patient and/or guardian regarding: the historical points, exam findings, and any diagnostic results supporting the discharge/admit diagnosis, lab results, the need for outpatient follow up, to return to the emergency department if symptoms worsen or persist or if there are any questions or concerns that arise at home. 09/18 10:30 Order name: Strep; Complete Time: 12:28 pm1 09/18 10:30 Order name: COVID-19/FLU A+B (Document "Date of Onset" if Symptomatic); Complete Time: pm1 13:28 09/18 12:25 Order name: Throat Culture EDMS Administered Medications: 10:36 Drug: Tylenol 1000 mg Route: PO; ll1 14:41 Follow up: Response: No adverse reaction ll1 11:47 Drug: Decadron (dexamethasone) 10 mg Route: IM; Site: right deltoid; jh5 13:50 Follow up: Response: No adverse reaction ll1 Disposition: 16:09 Co-signature as Attending Physician, Hardy Barney MD I agree with the assessment and kdr plan of care. Disposition Summary: 09/18/21 13:33 Discharge Ordered Location: Home pm1 Problem: new pm1 Symptoms: have improved pm1 Condition: Stable pm1 Diagnosis - Coronavirus infection, unspecified pm1 Followup: pm1 - With: Emergency Department - When: As needed - Reason: Worsening of condition Followup: pm1 - With: Private Physician - When: 2 - 3 days - Reason: Recheck today's complaints, Continuance of care, Re-evaluation by your physician Discharge Instructions: - Discharge Summary Sheet pm1 - COVID-19 pm1 - COVID-19 Frequently Asked Questions pm1 - 10 Things You Can Do to Manage Your COVID-19 Symptoms at Home - [facility] pm1 - COVID-19: Quarantine vs. Isolation - [facility] pm1 Forms: - Medication Reconciliation Form pm1 - Thank You Letter pm1 - Antibiotic Education pm1 - Prescription Opioid Use pm1 Signatures: Dispatcher [employer] EDMS Hardy Barney MD MD [facility] Ho Daniels NP [employer] pm1 Sarai Payne RN RN 1 Julieth Marc RN RN 5
[2021-09-18 13:58] VITALS: BP 112/68; TEMP 100.4; O2SAT 98
== END 2021-09-18 13:53 | disposition home or self-care (01) ==
LOC: ER 09:50
DX: U07.1 COVID-19 (principal)
CPT/HCPCS: 0240U; 87070; 87081; 96372; 99283; J1100